=== PATIENT | male | born 1960 | race Caucasian/White ===

== ENCOUNTER 2017-08-30 10:40 | Outpatient (CLI) | payer BC ==
[2017-08-30] MEDS ORDERED: Gadobenate Dimeglumine 529 MG/1 ML (20ML VIAL) ONE (15:19)
--- NOTE | 2017-08-30 15:27 | MRI ---
BRAIN MRI AND PITUITARY GLAND MRI WITH AND WITHOUT CONTRAST: Date: 08/30/17 HISTORY: Pituitary adenoma, partial resection. Evaluate for growth. Restaging. COMPARISON: 02/15/16, 08/29/16. TECHNIQUE: Brain and pituitary gland MRI performed with and without intravenous Gadolinium administration. Multi sequential, multiplanar imaging performed. FINDINGS: Calvarium has a normal T1 marrow signal intensity. Midline brain parenchymal structures are unremarka ble. No parenchymal mass, mass effect, or midline shift. Brain volume is age-appropriate. Cortical gr ay-white matter differentiation is preserved. Ventricles and sulci are patent and symmetric. Central arterial flow-voids are maintained. Absent restricted diffusion. Minimal T2 and FLAIR white matter hyperintensities, unchanged from the prior examination. Hyperinten sities are nonspecific, but are favored to be due to chronic small vessel ischemic change. There is bilateral maxillary sinus mucosal disease. There is complex fluid opacifying the left spheno id sinus, unchanged from the prior examination. Adequate aeration of the mastoid air cells. There is no pathologic enhancement of the brain parenchyma. Optic chiasm and prechiasmatic optic nerves are unremarkable. Leftward deviation of the pituitary stalk. Along the right aspect of the sella, there is a solid sign al intensity mass with slight heterogeneity. This mass extends into the right cavernous sinus. Right cavernous carotid flow-void is maintained. Though there is suprasellar extension, no significant mass effect upon the adjacent optic nerve or optic chiasm. Lesion does demonstrate slight heterogeneous e nhancement. Currently, this mass measures 1.8 cm mediolateral x 1.5 cm anterior posterior x 1.4 cm cr aniocaudal. Previously, this mass measured 1.7 x 1.5 x 1.4 cm. No appreciable change. No new masses. When compared to the examination from January 2016, there is also no significant change. At that time , the mass measured 1.7 x 1.6 x 1.5 cm. IMPRESSION: Essentially stable pituitary adenoma. POS: [facility]
== END 2017-08-30 10:41 | disposition home or self-care (01) ==
LOC: TBSIIMAG 10:40
PROVIDERS: ATTEND Radiology Radiation Oncology
DX: D35.2 Benign neoplasm of pituitary gland (principal)
CPT/HCPCS: 70553; A9579

== ENCOUNTER 2020-02-12 14:04 | Outpatient (CLI) | payer BC ==
[~2020-02-12 14:04] MED LIST: Magnevist 469MG/ML 20 ML VIAL ONE
--- NOTE | 2020-02-12 16:16 | MRI ---
Exam: Brain MRI with and without contrast HISTORY: Follow-up. Benign pituitary neoplasm. Previous surgery. COMPARISON: 08/30/2017, 08/29/2016 FINDINGS: Brain MRI: Gradient echo sequence: No hemorrhage Calvarium: Appropriate T1 marrow signal intensity Midline brain parenchyma: Unremarkable Cerebrum:No parenchymal mass or mass effect or midline shift. Brain volume is age-appropriate. The gr ay-white matter differentiation is preserved. Minimal scattered T2 and FLAIR white matter hyperintensities, essentially unchanged. Ventricles: No evidence of hydrocephalus. Sinuses and mastoid air cells: Persistent opacification of the maxillary sinuses, ethmoid air cells a nd mixed signal intensity within the left sphenoid sinus. Diffusion: Central arterial flow is maintained. Absent restricted diffusion. Postcontrast images: No pathologic enhancement of the brain parenchyma. Pituitary MRI: The overall size of the macroadenoma has decreased. Currently, the macroadenoma measures 1.3 cm medio lateral by 1.1 cm canal caudal by 1.4 cm anterior posterior. Previously, this mass measured 1.8 x 1.4 x 1.5 cm. There is mild leftward deviation of the pituitary stalk. No mass effect upon the optic eyes were prechiasmatic optic nerves. The right cavernous carotid flow void is maintained. 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
== END 2020-02-12 14:05 | disposition home or self-care (01) ==
LOC: TBSIIMAG 14:04
PROVIDERS: ATTEND Neurological Surgery
DX: D35.2 Benign neoplasm of pituitary gland (principal)
CPT/HCPCS: 70553; A9579

== ENCOUNTER 2022-06-29 12:35 | Outpatient (CLI) | payer BC ==
[2022-06-29] MEDS ORDERED: Magnevist 469MG/ML 20 ML VIAL ONE (17:34)
== END 2022-06-29 12:36 | disposition home or self-care (01) ==
LOC: TBSIIMAG 12:35
PROVIDERS: ATTEND Neurological Surgery
DX: D35.2 Benign neoplasm of pituitary gland (principal)
CPT/HCPCS: 70553; A9579

== ENCOUNTER 2022-06-29 15:24 | Outpatient (CLI) | payer BC ==
[2022-06-29 15:59] LABS: #Eosinphils 0.1 10x3/uL (0.0-0.5); #Monocytes 0.3 10x3/uL (0.0-1.1); #Neutrophils 3.1 10x3/uL (1.5-8.4); %Basophils 0.5 % (0.0-2.0); %Eosinophils 1.4 % (0.0-6.0); %Lymphocytes 38.5 % (18.0-47.0); %Monocytes 5.7 % (0.0-10.0); %Neutrophils 53.7 % (40.0-75.0); Hemoglobin 14.1 g/dL (13.5-17.5); Mean Corpuscular HGB CONC 33.9 g/dL (32.0-36.0); Mean Corpuscular Volume 88.5 fl (81.2-95.1); Mean Platelet Volume 10.9 fl (7.4-10.4); Platelet Count 175 10x3/uL (150-450); RBC Distribution Width 13.8 % (11.5-14.5); White Blood Cell (WBC) Count 5.8 10x3/uL (3.5-10.5)
== END 2022-06-29 15:25 | disposition home or self-care (01) ==
LOC: LABBT 15:24
PROVIDERS: ATTEND Orthopaedic Surgery Hand Surgery
DX: Z01.818 Encounter for other preprocedural examination (principal); S62.633A Displaced fracture of distal phalanx of left middle finger, initial encounter for closed fracture
CPT/HCPCS: 85025; 93005; 93010

== ENCOUNTER 2022-07-04 14:34 | Day surgery (SDC) | payer BC ==
[2022-06-30 10:11] VITALS: BMI 26.6
[2022-07-04] MEDS ORDERED: Levofloxacin 500 mg/D5W 100 ml Premix Bag ONE (16:01)
[2022-07-04] MEDS ORDERED: ePHEDrine 50 MG/ML VIAL ONE (16:47)
[2022-07-04] MEDS ORDERED: Ondansetron PF 4 MG/2 ML Vial ONE (16:47)
[2022-07-04] MEDS ORDERED: PROPOFOL 200 MG/20 ML VIAL ONE (16:47)
[2022-07-04] MEDS ORDERED: Lidocaine 1% PF 5 ML VIAL ONE (16:47)
[2022-07-04] MEDS ORDERED: Ketorolac Tromethamine 30 MG/ML VIAL ONE ×2 (16:47→20:27)
[2022-07-04] MEDS ORDERED: Dexamethasone 20 MG/5 ML VIAL ONE (16:47)
[2022-07-04] MEDS ORDERED: Bupivacaine PF 0.5% 30 ML VIAL ONE (16:49)
[2022-07-04] MEDS ORDERED: Bacitracin Zinc Ointment 30 gm TUBE ONE (16:49)
[2022-07-04] MEDS ORDERED: Clindamycin/D5W 900 mg/50 ml Premix Bag ONE (16:57)
[2022-07-04] MEDS ORDERED: fentaNYL PF 100 MCG/2 ML SYRINGE ONE (17:00)
[2022-07-04] MEDS ORDERED: Ketorolac Tromethamine 30 MG/ML VIAL IM SCH (21:00)
== END 2022-07-04 21:30 | disposition home or self-care (01) ==
LOC: SDC 14:34
PROVIDERS: ATTEND Orthopaedic Surgery Hand Surgery
PROC: 0PSV04Z Reposition Left Finger Phalanx with Internal Fixation Device, Open Approach (ICD-10-PCS; principal; 2022-07-04)
PROC: 0LN80ZZ Release Left Hand Tendon, Open Approach (ICD-10-PCS; principal; 2022-07-04)
DX: S62.633A Displaced fracture of distal phalanx of left middle finger, initial encounter for closed fracture (principal); S66.313A Strain of extensor muscle, fascia and tendon of left middle finger at wrist and hand level, initial encounter; M20.012 Mallet finger of left finger(s); E78.5 Hyperlipidemia, unspecified; Z79.82 Long term (current) use of aspirin; Z79.890 Hormone replacement therapy; Z79.899 Other long term (current) drug therapy; Z88.0 Allergy status to penicillin; W23.0XXA Caught, crushed, jammed, or pinched between moving objects, initial encounter
CPT/HCPCS: C1894; J1100; J1885; J1956; J2405; J2704; J3490; S0020